=== PATIENT | male | born 1985 | race African-American/Black ===

== ENCOUNTER 2017-04-21 21:47 | Inpatient (IN) | payer SELFPAY ==
--- NOTE | ~2017-04-21 | CO ---
Unit #: [id number] #: [id number] Patient: DYLON NOBLE [id number] [address] [address] [id number] I MR#: [id number] NAME: DYLON NOBLE ROOM: 240 Age: 31 Sex: M Admission Date: 04/22/2017 : 1985 Attending Physician: Corwin Peguero M.D. Primary Care Physician: No Primary Care Physician CONSULTATION REPORT REASON FOR CONSULTATION Uncontrolled hypertension. HISTORY OF PRESENT ILLNESS This is a 31 year old with no past medical history admitted because of abdominal pain on 04/21/2017. Mostly, his pain is right lower quadrant. It started one day prior to the admission, getting worse. associated with nausea and chills. No vomiting. He has a loss of appetite. He was later found to have diverticulitis. Surgeon is treating it. During the hospitalization course, his blood pressure was uncontrolled so medical team has been contacted. Currently, his blood pressure is 153/98. Maximum blood pressure is 187/131. Currently, he is complaining of right lower quadrant pain, 6/10, constant, no radiation, aggravated with movement, relieved after pain medicine. He has never been diagnosed with blood pressure before. He never saw PCP before. PAST MEDICAL HISTORY None. PAST SURGICAL HISTORY None. SOCIAL HISTORY The patient smokes one pack of cigarettes per day. No alcohol. No drugs. FAMILY HISTORY Positive for hypertension. ALLERGIES None. CURRENT HOME MEDICATIONS None. REVIEW OF SYSTEMS No headache. No visual changes. No weakness, numbness, tingling. No skin rash. No leg swelling. I reviewed 12-point system which is negative except as in HPI. PHYSICAL EXAMINATION GENERAL APPEARANCE: A 31 year old lying in bed, not in acute distress, able to provide history, alert, oriented x3. VITAL SIGNS: Temperature today 98.7. Pulse 80. Respiration 17. Blood pressure 153/98. Unit #: [id number] #: [id number] Patient: DYLON NOBLE HEENT: Pupils equally react to light and accommodation. No pallor. No icterus. Moist mucosa present. NECK: Supple. HEART: S1, S2 heard. Regular rhythm. LUNGS: Clear to auscultation. No crackles. No rhonchi. ABDOMEN: Soft. Tender right lower quadrant. Not distended. Bowel sounds present. EXTREMITIES: No pedal edema. SKIN: No rash. NEUROLOGIC: No focal neurological deficits. DIAGNOSTIC STUDIES LABORATORY: WBC 17.1, hemoglobin 13.0, platelets 228. BMP on April 22, shows sodium 133, potassium 3.2, creatinine 0.9. Urine culture negative. Urinalysis shows WBC 5 to 10, trace leukocyte esterase. IMAGING: CAT scan done on April 22 shows inflammatory changes associated with cecum. Cecal diverticulitis or colitis may be possible. Also, the patient had apple core mass in the sigmoid colon area. ASSESSMENT AND PLAN A 31-year-old admitted because of abdominal pain. Consulted medical team for blood pressure. 1. Hypertension with crisis present on admission, newly diagnosed, uncontrolled. The patient was started on IV Vasotec. I am going to p.o. hydralazine 25 mg three times daily and monitor closely. 2. Acute cecal diverticulitis. Treatment per LSA. 3. Sigmoid colon mass. The patient needs colonoscopy once stable. 4. Less likely urinary tract infection. 5. Hypokalemia. Replace with p.o. potassium. 6. Mild hyponatremia. Monitor with a BMP. Thank you for consultation. Dictated by... Abbi Davis/alba TD: 04/24/2017 14:54 JOB #: [id number] CONSULTATION REPORT Page 1 of 1 X Jade Lovett MD X CONSULTATION REPORT
--- NOTE | ~2017-04-21 | CT2 ---
[facility] A Service of [facility] & [facility] RADIOLOGY TEXT RESULTS PATIENT: DYLON NOBLE LOCATION: A 240-01 : 87 UNIT #: [id number] AGE: [address]: Corwin Peguero SEX: M ORDER DR: [id number] [facility] [address]. [place], [place] [address] [id number] I MR#: [id number] Acc #: [id number] NAME: DYLON NOBLE : 1985 SEX: M STUDY DATE/TIME: 04/22/2017 0:24 UNIT: C2A ROOM: 240 STUDY DESCRIPTION: CT Abd and Pelv W Cont Attending Physician: Corwin Peguero M.D. Ordering Physician: Atilio Licea M.D. Primary Care Physician: Primary Care Physician No MEDICAL IMAGING REPORT This report is preliminary unless electronic signature is present EXAM CT of the abdomen and pelvis with contrast HISTORY Abdominal pain since yesterday. Right lower quadrant pain, nausea and vomiting. COMPARISON None TECHNIQUE The patient was given 100 mL of Isovue-370. Axial 5.0 mm images were obtained through the abdomen and pelvis. Sagittal and coronal reconstructions were generated. This CT exam was performed with one or more of the following radiation dose reduction techniques: automatic exposure control, adjustment of mA and/or kV according to patient size, and iterative reconstruction. FINDINGS The liver, gallbladder, spleen, pancreas, adrenal glands and kidneys are normal except for what appears to be mild right hydronephrosis. The ureter does not appear significantly dilated and I cannot identify any ureteral stones. The aorta is normal in size. There is no adenopathy. The bowel appears to show minimal inflammation associated with the cecum and there are 2 or 3 small bubbles of air seen on images 45 and 46 that may be extraluminal and they are surrounded by inflammation. I suspect this might represent a cecal diverticulum and diverticulitis. The appendix is nearby but is clearly normal. In the sigmoid colon, there is a very abrupt luminal narrowing. It is about 2.3 cm in length. This is probably due to contraction but it has an apple core appearance and a mass cannot be excluded. Bladder and prostate gland are normal. The bones are STS. [facility] A Service of [facility] & [facility] RADIOLOGY TEXT RESULTS PATIENT: DYLON NOBLE LOCATION: [facility] 240-01 : 87 UNIT #: [id number] AGE: [address]: Corwin Peguero SEX: M ORDER DR: unremarkable. IMPRESSION 1. The appendix is normal. 2. There is some inflammation associated with the cecum and there seem to be 2 or 3 tiny air bubbles in this region that could be extraluminal and this is probably due to cecal diverticulitis or colitis. No abscess is suggested. 3. In the sigmoid colon there is abrupt luminal narrowing extending over a 2.3 cm length. This is probably due to contraction in this region but it is very focal and conspicuous and I think an apple core mass lesion cannot be completely excluded. 4. There seems to be mild prominence of the right renal pelvis but the ureter is not dilated and there are no stones identified. Follow-up imaging either with repeat CT scan of colonoscopy is recommended for the sigmoid lesion. Dictated by... Eb Salmon M.D. THIS IS AN ELECTRONICALLY VERIFIED REPORT Eb Salmon M.D. at 04/22/2017 1:32 PM Varinder TD: 04/22/2017 08:27 JOB #: [id number] MEDICAL IMAGING REPORT Page 1 of 1 COPY
--- NOTE | ~2017-04-21 | CT2 ---
[facility] A Service of [facility] & [facility] RADIOLOGY TEXT RESULTS PATIENT: DYLON NOBLE LOCATION: [facility] 330- : 87 UNIT #: [id number] AGE: [address]: Corwin Peguero SEX: M ORDER DR: [id number] [address] [id number] [facility]. [place], [place] [address] [id number] I MR#: [id number] Acc #: [id number] NAME: DYLON NOBLE : 1985 SEX: M STUDY DATE/TIME: 04/26/2017 10:40 [facility] ROOM: [facility] STUDY DESCRIPTION: CT Abd and Pelv W Cont Attending Physician: Corwin Peguero M.D. Ordering Physician: Corwin Peguero M.D. Primary Care Physician: Primary Care Physician No MEDICAL IMAGING REPORT This report is preliminary unless electronic signature is present EXAM CT abdomen and pelvis with contrast 04/26/2017 1040 hours HISTORY 31-year-old man complaining of abdominal pain since 04/20/2017 mostly on the right side. COMPARISON CT abdomen 04/22/2017. TECHNIQUE Dynamic helical CT images were obtained from the lung bases through the pubic symphysis with intravenous contrast and oral contrast. Sagittal and coronal reconstructions were performed. Contrast was Isovue-370 100 mL IV. Total exam DLP 773 mGy-cm. This CT examination was performed with one or more of the following radiation dose reduction techniques: automatic exposure control, adjustment of mA and/or kV according to patient size, and iterative reconstruction. FINDINGS Images through the lung bases demonstrate new dependent airspace densities with air bronchograms evident on the right. Atelectasis is favored over pneumonia. No effusion seen. Images through the abdomen demonstrate a normal appearance to the liver, spleen, pancreas, gallbladder, bile ducts and adrenal glands. The kidneys enhance normally. There is slight increase in right perinephric stranding and fluid likely reactive to the adjacent changes in the right colon. There is interval increase in wall thickening at the cecum and ascending colon with decrease in wall thickening of the hepatic flexure and transverse colon. There is fluid posterior to the cecum appearing slightly loculated measuring 2.9 x 2.5 cm without an enhancing or discrete wall. A developing abscess cannot be excluded. Attention to this on [facility] A Service of [facility] & [facility] RADIOLOGY TEXT RESULTS PATIENT: DYLON NOBLE LOCATION: [facility] 330-01 : 87 UNIT #: [id number] AGE: [address]: Coriwn Peguero SEX: M ORDER DR: follow up is recommended. The appendix remains normal. However there is thickening apparent in the terminal ileum on the current exam which has increased since 04/22/2017. There is some fluid around the terminal ileum along its posterior aspect extending into the paracolic gutter. The distal colon is normal. The area of tight narrowing of the mid sigmoid colon has resolved. This was likely related to peristalsis. There is increased fluid in the rectum. IMPRESSION 1. There has been progression of inflammatory changes with epicenter at the cecum with increasing stranding and fluid around the cecum, new wall thickening involving the terminal ileum with stranding around the terminal ileum. There is new fluid in the retroperitoneum extending along the paracolic gutter and into the anterior and posterior pararenal spaces. There is a 2.5 x 2.9 cm fluid collection posterior to the cecum which is more well defined and increased from the prior exam. This does not have an enhancing wall at this time to meet criteria for an abscess but a developing abscess cannot be excluded. The appearance appears more phlegmonous than seen previously. The wall thickening of the hepatic flexure and the sigmoid colon however has improved. 2. Area of tight narrowing of the mid sigmoid colon seen on prior CT has resolved. 3. The kidneys enhance normally. There is a small amount of fluid and stranding in the right perinephric fat felt likely reactive to the adjacent changes in the right colon. STAT * RESULT Dictated by... Malia Ball M.D. THIS IS AN ELECTRONICALLY VERIFIED REPORT Malia Ball M.D. at 04/26/2017 12:03 PM Jensen TD: 04/26/2017 11:21 JOB #: [id number] MEDICAL IMAGING REPORT Page 1 of 1 COPY
--- NOTE | ~2017-04-21 | CT2 ---
[facility] A Service of [facility] RADIOLOGY TEXT RESULTS PATIENT: DYLON NOBLE LOCATION: [facility] 330- : 87 UNIT #: [id number] AGE: [address]: Corwin Peguero SEX: M ORDER DR: [id number] [id number] [facility]. [place], [place] [address] [id number] I MR#: [id number] Acc #: [id number] NAME: DYLON NOBLE : 1985 SEX: M STUDY DATE/TIME: 04/29/2017 10:25 [facility]: [facility] STUDY DESCRIPTION: CT Abd and Pelv W Cont Attending Physician: Corwin Peguero M.D. Ordering Physician: Karl Brown III, M.D. Primary Care Physician: No Primary Care Physician MEDICAL IMAGING REPORT This report is preliminary unless electronic signature is present EXAM CT abdomen and pelvis INDICATIONS Right-sided abdominal pain. Severe right-sided colitis for [address] of the abdomen and pelvis with p.o. and IV contrast (mL Isovue-370 IV contrast). Coronal and sagittal reconstructions were obtained. This CT exam was performed with one or more of the following radiation dose reduction techniques: automatic exposure control, adjustment of mA and/or kV according to patient size, and iterative reconstruction. COMPARISON CT abdomen and pelvis 04/26/2017 and 04/22/2017. FINDINGS There is some mild atelectasis in both lung bases. This has been slightly improving. The solid abdominal organs are unchanged. Gallbladder is not distended. There is extensive circumferential thickening of the ascending colon. The loculated fluid collection in the right pericolic gutter posterior to the ascending colon measures 3.3 x 2.6. This is fairly similar to the prior study. This fluid collection is adjacent to the base of the cecum near the origin of the appendix. The size of the appendix is unchanged. There is mild associated inflammation of the terminal ileum. This has slightly improved. [facility] A Service [facility] RADIOLOGY TEXT RESULTS PATIENT: DYLON NOBLE LOCATION: [facility] 330-01 : 87 UNIT #: [id number] AGE: [address]: Corwin Peguero SEX: M ORDER DR: No new areas of bowel inflammation. No small bowel obstruction. The abdominal aorta is normal in caliber. No pathologically enlarged retroperitoneal or mesenteric lymph nodes. Small subcentimeter mesenteric nodes are similar to the prior study. Pelvis: No pelvic mass. Bladder is unremarkable. No enlarged pelvic or inguinal lymph nodes. No acute osseous abnormalities. IMPRESSION 1. Circumferential thickening of the cecum and the terminal ileum. The appearance is fairly similar to the prior study with some slight improvement at the terminal ileum. 2. Extraluminal rim enhancing fluid collection in the right pericolic gutter is fairly similar to the prior study. 3. Associated inflammation around the cecum including 2 small foci of gas that could be extraluminal. This is unchanged. No new findings. 4. Improving atelectasis in lung bases. Dictated by... Tashi Cavazos M.D. THIS IS AN ELECTRONICALLY VERIFIED REPORT Tashi Cavazos M.D. at 04/29/2017 3:12 PM CONNIE/janeth TD: 04/29/2017 13:09 JOB #: [id number] MEDICAL IMAGING REPORT Page 1 of 1 COPY
--- NOTE | ~2017-04-21 | EKG ---
PATIENT: DYLON NOBLE UNIT #: [id number] Ventricular Rate: 83 BPM Atrial Rate: 83 BPM P-R Interval: 116 ms QRS Duration: 94 ms Q-T Interval: 380 ms QTC Calculation(Bezet): 446 ms P [place]: 31 degrees Calculated R [place]: 37 degrees Calculated T [place]: -12 degrees Diagnosis Line: Normal sinus rhythm Diagnosis Line: T wave abnormality, consider inferior ischemia Diagnosis Line: Abnormal ECG Diagnosis Line: No previous ECGs available Diagnosis Line: Confirmed by STU LAGOS MD ([id number]) on Diagnosis Line: 05/02/2017 8:08:17 PM INTERPRETING MD: DANNY
--- NOTE | ~2017-04-21 | DS ---
Unit #: [id number] #: [id number] Patient: DYLON NOBLE [id number] [address] [place], [place] [address] [id number] I MR#: [id number] NAME: DYLON NOBLE ROOM: 330 Age: 31 Sex: M Admission Date: 04/22/2017 : 1985 Discharge Date: 04/30/2017 Attending Physician: Corwin Peguero M.D. Primary Care Physician: No Primary Care Physician DISCHARGE SUMMARY CONSULTATIONS HIPS. ADMITTING DIAGNOSIS Severe abdominal pain. DISCHARGE DIAGNOSIS Severe right-sided colitis. SECONDARY DIAGNOSIS Hypertension. PROCEDURE PERFORMED None. BRIEF HOSPITAL COURSE This is a 31-year-old gentleman who was admitted with severe abdominal pain. He was initially started on Levaquin and Flagyl and had a CT scan, which showed colitis of the right colon. He continued to have fairly severe abdominal pain several days into his hospitalization, so a repeat CT scan was done, which looked worse. I came and examined the patient that day and changed his antibiotics from Levaquin to Invanz. The following morning he felt better and improved significantly overly the course of the next 48-72 hours. He was started on a clear liquid diet and advanced to a low-residue diet and was tolerating that with good GI function solidly for 24 hours prior to discharge. Prior to discharge he was having no abdominal pain and no fevers throughout his hospitalization. He did have an elevated white blood count the day prior to discharge, and it was still pending at the time of discharge. I also repeated his CAT scan the day prior to discharge, and although there is still some severe inflammation, it had not gotten any worse. There was also a small 2.5 cm x 3 cm probable abscess that really looked too small to try to drain percutaneously. Most of the clinical decisions made in this case were based on the patient's physical exam and what he was conveying to us. He wanted to go home and, again, was completely nontender. DISPOSITION Discharged to home. FOLLOW-UP He is to follow up with me in the office in 2 weeks for a checkup. I specifically discussed with him that, if there is any return of abdominal pain or fevers or other concerns, he is to notify us immediately or return Unit #: [id number] #: [id number] Patient: DYLON NOBLE to the emergency room. MEDICATIONS He was sent home with a 10-day script of Augmentin and Flagyl. I also asked the hospitalists to review his med/rec form to see on which antihypertensive they wanted him to be discharged home. Dictated by... Karl Brown III, M.D. VCL/virgen TD: 05/02/2017 07:52 JOB #: [id number] DISCHARGE SUMMARY Page 1 of 1 X Karl Brown III, MD X DISCHARGE SUMMARY
[~2017-04-21 21:47] MED LIST: DELSYM30 MG/5 M1 PO; IBUPROFEN800 MG; IBUPROFEN800 MG PO; LORTAB 5/500 TA1 TA1 PO; STERAPRED5 MG/DOSE1 PO; TAMIFLU75 M1 PO
[2017-04-21 23:15] LABS: BASOPHIL# 0.1 X10e3 (0-0.3); BASOPHIL% 0.4 % (0-2.5); DIFF IND YES; EOSINOPHIL% 0.1 % (0.0-7.0); HEMATOCRIT 44.9 % (38.0-50.0); HEMOGLOBIN 15.1 gm/dL (13.0-16.0); LYMPHOCYTE# 1.1 X10e3 (1.0-3.5); LYMPHOCYTE% 4.6 % (17.0-45.0); MEAN CELL VOLUME 88.6 FL (83-96); MEAN CORPUSCULAR HEMOGLOBIN 29.9 PG (28-34); MEAN CORPUSCULAR HGB CONC 33.7 g/dL (30-36); MEAN PLATELET VOLUME 8.4 FL (6.5-11.5); MONOCYTE# 1.3 X10e3 (0-1.0); MONOCYTE% 5.5 % (3.0-12.0); NEUTROPHIL# 21.7 X10e3 (1.5-7.1); NEUTROPHIL% 89.4 % (40-75); PLATELET COUNT 245 X10e3 (140-420); RED BLOOD COUNT 5.07 X10e (3.90-5.60); RED CELL DISTRIBUTION WIDTH 12.8 % (11.0-15.5); WHITE BLOOD COUNT 24.2 X10e3 (4.0-10.5)
[2017-04-21 23:37] LABS: ALBUMIN SERUM 4.4 g/dL (3.5-5.0); BILIRUBIN, DIRECT 0.2 mg/dL (0.0-0.2); BILIRUBIN,INDIRECT 0.8 mg/dL (0.0-0.9); BUN/CREATININE RATIO 12.5; CALCIUM SERUM 9.2 mg/dL (8.4-10.2); CREATININE SERUM 0.8 mg/dL (0.6-1.4); POTASSIUM 3.3 mmol/L (3.5-5.1); PROTEIN TOTAL SERUM 8.1 g/dL (6.0-8.3)
[2017-04-21 23:47] LABS: URINE SOURCE CLEAN CATCH
[2017-04-21 23:51] LABS: URINE APPEARANCE CLEAR; URINE BILIRUBIN NEG (NEG); URINE BLOOD TRACE (NEG); URINE COLOR DK YELLOW; URINE GLUCOSE NEG (NEG); URINE KETONE 3+ (NEG); URINE LEUKOCYTE ESTERASE TRACE (NEG); URINE NITRATE NEG (NEG); URINE PROTEIN 2+ (NEG); URINE SPECIFIC GRAVITY 1.029 (1.003-1.035)
[2017-04-21 23:53] LABS: CULTURE INDICATED? YES; URINE BACTERIA AUWI NEG (NEGATIVE); URINE SQUAMOUS EPITHELIAL CELL OCC /[HPF]
[2017-04-22 00:03] LABS: PLATELET ESTIMATE NORMAL (NORMAL); RBC NORMAL YES
[2017-04-22 04:13] LABS: BASOPHIL# 0.1 X10e3 (0-0.3); BASOPHIL% 0.6 % (0-2.5); EOSINOPHIL# 0.1 X10e3 (0-0.7); EOSINOPHIL% 0.3 % (0.0-7.0); HEMATOCRIT 40.7 % (38.0-50.0); HEMOGLOBIN 13.6 gm/dL (13.0-16.0); LYMPHOCYTE# 2.5 X10e3 (1.0-3.5); LYMPHOCYTE% 10.4 % (17.0-45.0); MEAN CELL VOLUME 89.5 FL (83-96); MEAN CORPUSCULAR HEMOGLOBIN 29.8 PG (28-34); MEAN CORPUSCULAR HGB CONC 33.3 g/dL (30-36); MEAN PLATELET VOLUME 7.9 FL (6.5-11.5); MONOCYTE# 1.8 X10e3 (0-1.0); MONOCYTE% 7.5 % (3.0-12.0); NEUTROPHIL# 19.7 X10e3 (1.5-7.1); NEUTROPHIL% 81.2 % (40-75); PLATELET COUNT 220 X10e3 (140-420); RED BLOOD COUNT 4.55 X10e (3.90-5.60); RED CELL DISTRIBUTION WIDTH 12.7 % (11.0-15.5); WHITE BLOOD COUNT 24.2 X10e3 (4.0-10.5)
[2017-04-22 04:14] LABS: DIFF IND NO
[2017-04-22 04:28] LABS: BUN/CREATININE RATIO 8.88; CALCIUM SERUM 8.3 mg/dL (8.4-10.2); CREATININE SERUM 0.9 mg/dL (0.6-1.4); GLOM FILT RATE Estimated 133.3 mL/min (>60); POTASSIUM 3.2 mmol/L (3.5-5.1)
[2017-04-22] MEDS ORDERED: NO MEDICATIONS (08:37)
[2017-04-23 06:15] LABS: HEMATOCRIT 40.8 % (38.0-50.0); HEMOGLOBIN 13.4 gm/dL (13.0-16.0); MEAN CELL VOLUME 89.9 FL (83-96); MEAN CORPUSCULAR HEMOGLOBIN 29.7 PG (28-34); RED BLOOD COUNT 4.53 X10e (3.90-5.60); RED CELL DISTRIBUTION WIDTH 12.5 % (11.0-15.5); WHITE BLOOD COUNT 19.9 X10e3 (4.0-10.5)
[2017-04-24 06:18] LABS: HEMATOCRIT 40.3 % (38.0-50.0); MEAN CELL VOLUME 91.3 FL (83-96); MEAN CORPUSCULAR HEMOGLOBIN 29.4 PG (28-34); MEAN CORPUSCULAR HGB CONC 32.2 g/dL (30-36); MEAN PLATELET VOLUME 8.5 FL (6.5-11.5); RED BLOOD COUNT 4.41 X10e (3.90-5.60); RED CELL DISTRIBUTION WIDTH 12.4 % (11.0-15.5); WHITE BLOOD COUNT 17.1 X10e3 (4.0-10.5)
[2017-04-24 11:13] LABS: BUN/CREATININE RATIO 4.54; CALCIUM SERUM 8.6 mg/dL (8.4-10.2); CREATININE SERUM 1.1 mg/dL (0.6-1.4); GLOM FILT RATE Estimated 104.6 mL/min (>60); POTASSIUM 3.8 mmol/L (3.5-5.1)
[2017-04-24 15:07] LABS: CALCIUM SERUM 8.8 mg/dL (8.4-10.2); GLOM FILT RATE Estimated 117.4 mL/min (>60); POTASSIUM 3.9 mmol/L (3.5-5.1)
[2017-04-25 05:53] LABS: HEMATOCRIT 38.4 % (38.0-50.0); HEMOGLOBIN 12.6 gm/dL (13.0-16.0); MEAN CELL VOLUME 89.3 FL (83-96); MEAN CORPUSCULAR HEMOGLOBIN 29.3 PG (28-34); MEAN CORPUSCULAR HGB CONC 32.8 g/dL (30-36); MEAN PLATELET VOLUME 8.2 FL (6.5-11.5); RED BLOOD COUNT 4.3 X10e (3.90-5.60); RED CELL DISTRIBUTION WIDTH 12.8 % (11.0-15.5); WHITE BLOOD COUNT 18.2 X10e3 (4.0-10.5)
[2017-04-25 06:53] LABS: ALBUMIN SERUM 3.1 g/dL (3.5-5.0); BILIRUBIN,TOTAL 0.6 mg/dL (0.2-2.0); BUN/CREATININE RATIO 7.77; CALCIUM SERUM 8.8 mg/dL (8.4-10.2); CREATININE SERUM 0.9 mg/dL (0.6-1.4); GLOM FILT RATE Estimated 133.3 mL/min (>60); MAGNESIUM 1.6 mg/dL (1.6-3.0); POTASSIUM 3.5 mmol/L (3.5-5.1); PROTEIN TOTAL SERUM 6.4 g/dL (6.0-8.3)
[2017-04-26 06:33] LABS: HEMATOCRIT 38.5 % (38.0-50.0); HEMOGLOBIN 12.8 gm/dL (13.0-16.0); MEAN CELL VOLUME 89.1 FL (83-96); MEAN CORPUSCULAR HEMOGLOBIN 29.5 PG (28-34); MEAN CORPUSCULAR HGB CONC 33.1 g/dL (30-36); MEAN PLATELET VOLUME 8.1 FL (6.5-11.5); RED BLOOD COUNT 4.32 X10e (3.90-5.60); RED CELL DISTRIBUTION WIDTH 12.7 % (11.0-15.5); WHITE BLOOD COUNT 17.6 X10e3 (4.0-10.5)
[2017-04-26 06:42] LABS: BUN/CREATININE RATIO 7.77; CALCIUM SERUM 8.8 mg/dL (8.4-10.2); CREATININE SERUM 0.9 mg/dL (0.6-1.4); GLOM FILT RATE Estimated 133.3 mL/min (>60)
[2017-04-27 07:18] LABS: HEMATOCRIT 37.5 % (38.0-50.0); HEMOGLOBIN 12.1 gm/dL (13.0-16.0); MEAN CELL VOLUME 89.7 FL (83-96); MEAN CORPUSCULAR HEMOGLOBIN 29.1 PG (28-34); MEAN CORPUSCULAR HGB CONC 32.4 g/dL (30-36); MEAN PLATELET VOLUME 7.7 FL (6.5-11.5); RED BLOOD COUNT 4.18 X10e (3.90-5.60); RED CELL DISTRIBUTION WIDTH 12.8 % (11.0-15.5); WHITE BLOOD COUNT 20.8 X10e3 (4.0-10.5)
[2017-04-27 07:49] LABS: ALBUMIN SERUM 3.2 g/dL (3.5-5.0); BILIRUBIN,TOTAL 1.3 mg/dL (0.2-2.0); BUN/CREATININE RATIO 8.75; CALCIUM SERUM 8.6 mg/dL (8.4-10.2); CREATININE SERUM 0.8 mg/dL (0.6-1.4); MAGNESIUM 1.9 mg/dL (1.6-3.0); POTASSIUM 3.7 mmol/L (3.5-5.1); PROTEIN TOTAL SERUM 6.7 g/dL (6.0-8.3)
[2017-04-28 05:58] LABS: HEMATOCRIT 36.7 % (38.0-50.0); MEAN CELL VOLUME 89.5 FL (83-96); MEAN CORPUSCULAR HEMOGLOBIN 29.1 PG (28-34); MEAN CORPUSCULAR HGB CONC 32.6 g/dL (30-36); MEAN PLATELET VOLUME 7.3 FL (6.5-11.5); RED BLOOD COUNT 4.1 X10e (3.90-5.60); RED CELL DISTRIBUTION WIDTH 12.9 % (11.0-15.5); WHITE BLOOD COUNT 19.4 X10e3 (4.0-10.5)
[2017-04-28 06:33] LABS: BUN/CREATININE RATIO 7.5; CREATININE SERUM 0.8 mg/dL (0.6-1.4)
[2017-04-29 05:35] LABS: HEMATOCRIT 33.4 % (38.0-50.0); MEAN CELL VOLUME 89.2 FL (83-96); MEAN CORPUSCULAR HEMOGLOBIN 29.5 PG (28-34); MEAN PLATELET VOLUME 7.3 FL (6.5-11.5); RED BLOOD COUNT 3.74 X10e (3.90-5.60); RED CELL DISTRIBUTION WIDTH 13.1 % (11.0-15.5); WHITE BLOOD COUNT 17.3 X10e3 (4.0-10.5)
[2017-04-29 05:59] LABS: BILIRUBIN,TOTAL 0.6 mg/dL (0.2-2.0); BUN/CREATININE RATIO 8.75; CALCIUM SERUM 8.5 mg/dL (8.4-10.2); CREATININE SERUM 0.8 mg/dL (0.6-1.4); MAGNESIUM 1.8 mg/dL (1.6-3.0); POTASSIUM 3.7 mmol/L (3.5-5.1); PROTEIN TOTAL SERUM 6.4 g/dL (6.0-8.3)
[2017-04-30 08:20] LABS: HEMATOCRIT 31.7 % (38.0-50.0); HEMOGLOBIN 10.6 gm/dL (13.0-16.0); MEAN CELL VOLUME 89.8 FL (83-96); MEAN CORPUSCULAR HEMOGLOBIN 29.9 PG (28-34); MEAN CORPUSCULAR HGB CONC 33.2 g/dL (30-36); MEAN PLATELET VOLUME 7.3 FL (6.5-11.5); RED BLOOD COUNT 3.54 X10e (3.90-5.60); RED CELL DISTRIBUTION WIDTH 13.1 % (11.0-15.5); WHITE BLOOD COUNT 16.5 X10e3 (4.0-10.5)
[2017-04-30 08:57] LABS: BUN/CREATININE RATIO 15.71; CALCIUM SERUM 8.8 mg/dL (8.4-10.2); CREATININE SERUM 0.7 mg/dL (0.6-1.4); GLOM FILT RATE Estimated 147.9 mL/min (>60); POTASSIUM 4.3 mmol/L (3.5-5.1)
[2017-04-30] MEDS ORDERED: AUGMENTIN PO (09:16)
[2017-04-30] MEDS ORDERED: FLAGYL PO (09:17)
[2017-04-30] MEDS ORDERED: HYDROCHLOROTHIA25 MG PO (12:08)
== END 2017-04-30 12:27 | disposition home or self-care (01) | DRG 392 ==
LOC: CED 21:47 → CEDOF 04-22 02:10 → C2A 04-22 02:10 → CEDOF 04-22 02:17 → CED 04-22 02:17 → CEDOF 04-22 07:52 → C2A 04-22 07:52 → C3A PCU 04-24 20:12
PROVIDERS: Emergency Medicine; Internal Medicine; Nurse Practitioner; Surgery
DX: K57.20 Diverticulitis of large intestine with perforation and abscess without bleeding (principal); E87.1 Hypo-osmolality and hyponatremia; I16.9 Hypertensive crisis, unspecified; K52.9 Noninfective gastroenteritis and colitis, unspecified; F17.210 Nicotine dependence, cigarettes, uncomplicated; Z82.49 Family history of ischemic heart disease and other diseases of the circulatory system; E87.6 Hypokalemia; D64.9 Anemia, unspecified
CPT/HCPCS: 36415; 74177; 80048; 80053; 80076; 81003; 82150; 82947; 83690; 83735; 85025; 85027; 87086; 93005; 96361; 96374; 96375; 99285; C9113; J0696; J1170; J1650; J1885; J2185; J2270; J2405; J2543; J3490; Q9967